=== PATIENT | female | born 1985 | race Caucasian/White ===

== ENCOUNTER 2023-12-14 11:33 | Inpatient (IN) | payer SELFPAY ==
[2023-12-14 11:43] VITALS: BP 134/91; PULSE 101; RESP 15; TEMP 36.5; O2SAT 100; BMI 26.6
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
[2023-12-14 12:26] LABS: Basophils # 0.1 10^3/uL (0.0-0.1); Basophils % 0.5 %; Eosinophils # 0.2 10^3/uL (0.0-0.8); Eosinophils % 1.6 %; Lymphocytes # 2.1 10^3/uL (0.8-4.8); Lymphocytes % 20.6 %; Mean Corpuscular HGB Conc 32.4 g/dL (30-55); Mean Corpuscular Hemoglobin 29.4 pg (27-33); Mean Corpuscular Volume 90.5 fl (85-98); Mean Platelet Volume 9.3 fL (7.4-10.4); Monocytes # 0.4 10^3/uL (0.2-0.9); Neutrophils # 7.36 10^3/uL (1.8-7.7); Neutrophils % 72.9 %; Nucleated Red Blood Cells % 0 %; Platelet Count 324 10^3/cmm (157-399); Red Blood Count 4.53 10^6/uL (3.85-5.65); Red Cell Distribution Width 13.4 % (12.1-15.1); White Blood Count 10.09 10^3/uL (3.29-11.43)
[2023-12-14 12:43] LABS: Alanine Aminotransferase 14 U/L (0-33); Albumin Level 3.8 g/dL (3.5-5.2); Alkaline Phosphatase 73 U/L (35-105); Anion Gap 15.1 (5-19); Blood Urea Nitrogen 9 mg/dL (6-20); Calcium 8.6 mg/dL (8.5-10.5); Carbon Dioxide 27 mmol/L (22-29); Chloride 103 mmol/L (98-107); Creatinine Clr Calc Pharmacy 149.2931; Globulin 3.1 g/dL (1.3-4.6); Glomerular Filtration Rate 136.6 mL/min (90-130); Glucose 139 mg/dL (65-115); HCG, Serum Qual Negative (Negative); Osmolality Calculated 293 mOsm/kg (285-295); Potassium 4.1 mmol/L (3.5-5.1); Sodium 141 mmol/L (136-145); Total Bilirubin 0.2 mg/dL (0.15-1.2); Total Protein 6.9 g/dL (6.6-8.7)
[2023-12-14 12:46] LABS: Acetaminophen < 5.0 ug/mL (10-30); Alcohol Level < 10 mg/dL (0-10); Salicylate < 0.3 mg/dL (3-10)
[2023-12-14 12:51] LABS: Aspartate Amino Transferase 12 U/L (0-32)
--- NOTE | 2023-12-14 12:52 | ECG_ITS ---
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 Measurements Intervals [place] Rate: 72 P: 70 [place]: 121 QRS: 69 QRSD: 84 T: 76 QT: 413 QTc: 453 Interpretive Statements SINUS RHYTHM No previous ECG available for comparison Electronically Signed On 12-14-2023 13:46:00 CDT by Geoffrey Stack M.D. [id number]
[2023-12-14 13:24] LABS: Thyroid Stimulating Hormone 0.46 uIU/mL (0.27-4.20)
[2023-12-14 14:03] LABS: Amphetamines Screen Urine Positive (Negative); Barbiturates Screen Urine Negative (Negative); Benzodiazepines Screen Urine Negative (Negative); Cocaine Screen Urine Negative (Negative); Opiate Screen Urine Negative (Negative); PCP Screen Urine Negative (Negative); THC Screen Urine Negative (Negative)
[2023-12-14 14:05] LABS: Urine Appearance Clear (CLEAR); Urine Color Yellow (Yellow); pH Urine 7 (5-7)
[2023-12-14 14:06] LABS: Add Urine Microscopic? YES; Bilirubin Urine Neg (Negative); Blood Urine 2+ (Negative); Glucose Urine UA Norm (Normal); Ketones Urine Negative (Negative); Leukocyte Esterase Urine Negative (Negative); Nitrate Urine Negative (Negative); Protein Urine Neg (Negative); Urobilinogen Urine Norm (Negative)
[2023-12-14 14:07] LABS: Add Urine Culture? No; Bacteria Urine TRACE /hpf; Squamous Epithelial Cell Urine 0-4 /hpf (0-5)
[2023-12-14 16:41] VITALS: BP 149/94; PULSE 101; RESP 18; TEMP 36.4; O2SAT 98
[2023-12-14 16:58] VITALS: BP 128/93; PULSE 89; RESP 16; TEMP 36.5; O2SAT 100
[2023-12-14] MEDS: nicotine 2 mg Gum BUCCAL ×2 (17:47→21:56)
[2023-12-14 19:42] VITALS: BP 107/70; PULSE 94; RESP 16; O2SAT 100
[2023-12-14] MEDS: hyDROXYzine 25 mg Capsule 50 MG PO (21:55)
[2023-12-14] MEDS: trazodone 50 mg Tablet PO (21:56)
[2023-12-15 06:00] VITALS: BP 126/91; PULSE 94; RESP 16; TEMP 36.4; O2SAT 99
[2023-12-15] MEDS: ibuprofen 600 mg Tablet PO ×2 (10:28→21:00)
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
[2023-12-15 14:00] VITALS: BP 125/81; PULSE 103; RESP 16; TEMP 36.8; O2SAT 98
[2023-12-15] MEDS: ARIPiprazole 10 mg Tablet 5 MG PO (14:22)
[2023-12-15 20:15] VITALS: BP 106/68; PULSE 100; RESP 16; TEMP 36.6; O2SAT 98
[2023-12-15] MEDS: hyDROXYzine 25 mg Capsule 50 MG PO (21:00)
[2023-12-15] MEDS: trazodone 50 mg Tablet PO (21:00)
[2023-12-16 06:00] VITALS: BP 114/79; PULSE 77; RESP 16; O2SAT 97
[2023-12-16] MEDS: nicotine 2 mg Gum BUCCAL (08:43)
[2023-12-16] MEDS: ARIPiprazole 10 mg Tablet 5 MG PO (08:43)
[2023-12-16 14:00] VITALS: BP 122/76; PULSE 107; RESP 16; TEMP 36.7; O2SAT 98
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
[2023-12-16 19:45] VITALS: BP 122/83; PULSE 87; RESP 16; TEMP 36.5; O2SAT 98
[2023-12-16] MEDS: trazodone 50 mg Tablet PO (20:54)
[2023-12-16] MEDS: ibuprofen 600 mg Tablet PO (20:54)
[2023-12-17 06:00] VITALS: BP 118/76; PULSE 113; RESP 16; O2SAT 98
[2023-12-17] MEDS: ARIPiprazole 10 mg Tablet PO (08:28)
[2023-12-17] MEDS: nicotine 2 mg Gum BUCCAL ×2 (08:30→12:39)
[2023-12-17 13:47] VITALS: BP 130/89; PULSE 108; RESP 17; TEMP 36.7; O2SAT 98
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
[2023-12-17 14:47] VITALS: BP 130/89; PULSE 108; RESP 17; TEMP 36.7; O2SAT 98
== END 2023-12-17 16:36 | disposition home or self-care (01) | DRG 885 ==
LOC: ER 15:02 → NP 15:28
PROVIDERS: Physician Assistant; Admitting Provider Psychiatry & Neurology Psychiatry; Emergency Provider Family Medicine; Visit Provider Psychiatry & Neurology Psychiatry
DX: F23 Brief psychotic disorder (principal); F15.10 Other stimulant abuse, uncomplicated; F43.10 Post-traumatic stress disorder, unspecified; Z91.410 Personal history of adult physical and sexual abuse; Z72.0 Tobacco use
CPT/HCPCS: 80053; 80306; 80307; 81001; 84443; 84703; 85025; 93005; 97150; 97165; 99285